=== PATIENT | female | born 1935 | race Caucasian/White ===

== ENCOUNTER 2019-12-12 13:12 | Emergency (ER) | payer MEDICARE, OTHER ==
[2019-12-12 13:30] VITALS: TEMP 97
--- NOTE | 2019-12-12 14:43 | ED.PDOC ---
History of Present Illness - General Chief Complaint: Diabetic Complaint Stated Complaint: possible hypoglycemic episode Time Seen by Provider: 12/12/19 13:14 Source: patient, family Exam Limitations: no limitations - History of Present Illness Initial Comments: The patient is an 84-year-old female presenting to the emergency room secondary to what appears to be an episode of hypoglycemia that occurred while she was at her water aerobics. She became dizzy and almost passed out. She had to be helped out of the pool. She is insulin-dependent diabetic and has had hypoglycemic episodes before. She did not pass completely out. Was given glucose at the site and was given something to eat later. Arrival here. Glucose upon arrival here was 61.The patient is alert and mentating well. No syncope or near syncope. No vomiting. No symptoms prior. Timing/Duration: momentarily Severity: moderate Improving Factors: medication Worsening Factors: nothing Associated Symptoms: diaphoresis, malaise, weakness Allergies/Adverse Reactions: Allergies NO KNOWN ALLERGY Allergy (Verified 12/12/19 13:18) Home Medications: Ambulatory Orders Amlodipine Besylate 10 mg PO DAILY 12/12/19 Hydrochlorothiazide 25 mg PO DAILY 12/12/19 Insulin NPH (Human) (Isophane) [Novolin N] 18 unit SC BEDTIME 12/12/19 Insulin NPH (Human) (Isophane) [Novolin N] 55 unit SC DAILY 12/12/19 Levothyroxine Sodium 112 mcg PO DAILY 12/12/19 Lisinopril 10 mg PO DAILY 12/12/19 Metoprolol Succinate [Metoprolol Succinate ER] 100 mg PO DAILY 12/12/19 Pravastatin Sodium 80 mg PO DAILY 12/12/19 Review of Systems - Review of Systems Constitutional: States: malaise, weakness EENTM: States: blurred vision Respiratory: States: no symptoms reported Cardiology: States: no symptoms reported Gastrointestinal/Abdominal: States: no symptoms reported Genitourinary: States: no symptoms reported Musculoskeletal: States: no symptoms reported Skin: States: no symptoms reported Neurological: States: see HPI Endocrine: States: excessive sweating All other Systems: No Change from Baseline Past Medical History (General) - Patient Medical History Hx Stroke: No Hx Asthma: No Hx Cardiac Disorders: No Hx Thyroid Disease: No Hx Diabetes: Yes Hx Gastroesophageal Reflux: Yes Hx Renal Disease: No Surgical History: Hysterectomy, other - Social History Hx Tobacco Use: No Family Medical History - Family History Mother Family History: No Known Physical Exam - Physical Exam General Appearance: Alert, Comfortable, No apparent distress Eye Exam: bilateral normal Ears, Nose, Throat: hearing grossly normal, normal pharynx Neck: full range of motion Respiratory: lungs clear, no respiratory distress, no accessory muscle use Cardiovascular/Chest: normal peripheral pulses, no edema, other - Regular rate t Peripheral Pulses: radial,right: 2+, radial,left: 2+ Gastrointestinal/Abdominal: soft Back Exam: normal inspection Extremity: normal range of motion, no pedal edema, normal capillary refill 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 Episode had resolved. The patient is eating and drinking well. She is feeling back to normal.She does need to monitor her blood sugars closely. Keep routine follow-up with primary care doctor. Keep a glucose supplement on hand in case of need. [email or web address] [email or web address] [id number] Departure - Departure Clinical Impression: Hypoglycemia Disposition: Discharge to Home or Self Care Condition: Fair Departure Forms: ED Discharge - Pt. Copy, Patient Portal Self Enrollment Instructions: Low Blood Sugar in People With Diabetes Diet: diabetic diet Activity: increase activity as tolerated Home Medications: Ambulatory Orders Amlodipine Besylate 10 mg PO DAILY 12/12/19 Hydrochlorothiazide 25 mg PO DAILY 12/12/19 Insulin NPH (Human) (Isophane) [Novolin N] 18 unit SC BEDTIME 12/12/19 Insulin NPH (Human) (Isophane) [Novolin N] 55 unit SC DAILY 12/12/19 Levothyroxine Sodium 112 mcg PO DAILY 12/12/19 Lisinopril 10 mg PO DAILY 12/12/19 Metoprolol Succinate [Metoprolol Succinate ER] 100 mg PO DAILY 12/12/19 Pravastatin Sodium 80 mg PO DAILY 12/12/19 Additional Instructions: The patient is an 84-year-old female presenting to the emergency room after a hypoglycemic episode. Episode had resolved. The patient is eating and drinking well. She is feeling back to normal.She does need to monitor her blood sugars closely. Keep routine follow-up with primary care doctor. Keep a glucose supplement on hand in case of need.
[2019-12-12 15:36] VITALS: BP 126/66; O2SAT 97
== END 2019-12-12 14:45 | disposition home or self-care (01) ==
LOC: ER 13:12
DX: E11.649 Type 2 diabetes mellitus with hypoglycemia without coma (principal); K21.9 Gastro-esophageal reflux disease without esophagitis; Z79.4 Long term (current) use of insulin; Z79.899 Other long term (current) drug therapy